=== PATIENT | female | born 1980 | race Two or more races ===

== ENCOUNTER 2022-06-20 15:29 | Emergency (ER) | payer OTHER ==
[2022-06-20 16:16] LABS: BILIRUBIN,URINE NEGATIVE (NEGATIVE); GLUCOSE, URINE (UA) NEGATIVE (NEGATIVE); KETONES,URINE (UA) NEGATIVE (NEGATIVE); LEUKOCYTE ESTERASE, URINE NEGATIVE (NEGATIVE); NITRITE,URINE NEGATIVE (NEGATIVE); OCCULT BLOOD,URINE SMALL (NEGATIVE); PROTEIN,URINE NEGATIVE (NEGATIVE); UROBILINOGEN,URINE 0.2 (NORMAL) E.U./dL (NORMAL)
[2022-06-20 16:18] LABS: CLARITY,URINE CLEAR (CLEAR); HCG UR QUAL NEGATIVE
[2022-06-20 16:25] LABS: BACTERIA,URINE Rare /HPF (None Seen); RBC,URINE 0-5 /HPF (0-5); SQUAMOUS EPITHELIAL CELL,UR RARE Squamous (<= Few); WBC,URINE 0-3 /HPF (0-5)
[2022-06-20 16:27] LABS: BASOPHILS # (AUTO) 0.1 10^3/uL (0.0-0.1); BASOPHILS % (AUTO) 1.4 %; EOSINOPHILS # (AUTO) 0.2 10^3/uL (0.0-0.7); EOSINOPHILS % (AUTO) 2.5 %; HCT - HEMATOCRIT 39.7 % (37.0-47.0); HGB - HEMOGLOBIN 12.2 g/dL (12.0-16.0); LYMPHOCYTES # (AUTO) 1.9 10^3/uL (1.5-3.5); LYMPHOCYTES % (AUTO) 29.5 %; MEAN CORPUSCULAR HEMOGLOBIN 26.8 pg (27.0-31.0); MEAN CORPUSCULAR HGB CONC 30.7 g/dL (32.0-36.0); MEAN CORPUSCULAR VOLUME 87.3 fL (81.0-99.0); MEAN PLATELET VOLUME 9.2 fL (7.9-10.8); MONOCYTES # (AUTO) 0.5 10^3/uL (0.0-1.0); MONOCYTES % (AUTO) 7.8 %; NEUTROPHILS # (AUTO) 3.8 10^3/uL (1.5-6.6); NEUTROPHILS % (AUTO) 58.6 %; PLT - PLATELET COUNT 402 10^3/uL (130-450); RED BLOOD COUNT 4.55 10^6/uL (4.20-5.40); RED CELL DISTRIBUTION WIDTH 15.7 % (12.0-15.0); WHITE BLOOD COUNT 6.5 x10^3/uL (4.8-10.8)
--- NOTE | 2022-06-20 16:38 | ED Physician Documentation ---
History of Present Illness - Stated complaint Stated Complaint: ABD PAIN GOING TO LT LEG - Chief complaint Chief Complaint: Abd Pain - Additonal information Additional information: 42-year-old female presents to the emergency department for evaluation of 4 days left lower quadrant abdominal pain with radiation down to the left thigh. No history of similar. She finds that the pain is constant but states worse when sitting. She took 3 Tylenol without relief of pain. She has had some nausea but no vomiting. No fevers. No urinary symptoms. No history of similar. Past surgical history significant for only. She is not anticoagulated Review of Systems Constitutional: reports: Reviewed and negative Cardiac: reports: Reviewed and negative Respiratory: reports: Reviewed and negative GI: reports: Abdominal Pain, Nausea. denies: Vomiting : reports: Reviewed and negative Skin: reports: Reviewed and negative PD PAST MEDICAL HISTORY - Allergies Allergies/Adverse Reactions: Allergies Allergy/AdvReac Type Severity Reaction Status Date / Time No Known Drug Allergies Allergy Verified 06/20/22 15:37 PD ED PE NORMAL - General General: Alert and oriented X 3, No acute distress - HEENT HEENT: PERRL - Neck Neck: Supple, no meningeal sign, No adenopathy - Cardiac Cardiac: RRR, No murmur - Respiratory Respiratory: No respiratory distress, Clear bilaterally - Abdomen Abdomen: Normal bowel sounds, Soft, Non tender (Scant left lower quadrant abdominal tenderness without guarding or rebound.) - Derm Derm: Warm and dry - Extremities Extremities: No deformity - Neuro Neuro: Alert and oriented X 3 Eye Opening: Spontaneous Motor: Obeys Commands Verbal: Oriented GCS Score: 15 Results - Vitals Vitals: Vital Signs - 24 hr 06/20/22 06/20/22 15:35 17:06 Temperature 36.6 C Heart Rate 84 88 Respiratory 16 16 Rate Blood Pressure 129/83 H 122/73 O2 Saturation 99 100 Oxygen O2 Source Room air - Labs Labs: Laboratory Tests 06/20/22 06/20/22 06/20/22 15:38 16:23 16:23 WBC 6.5 RBC 4.55 Hgb 12.2 Hct 39.7 MCV 87.3 MCH 26.8 L MCHC 30.7 L RDW 15.7 H Plt Count 402 MPV 9.2 Neut # (Auto) 3.8 Lymph # (Auto) 1.9 Holt # (Auto) 0.5 Eos # (Auto) 0.2 Baso # (Auto) 0.1 Absolute Nucleated RBC 0.00 Nucleated RBC % 0.0 Sodium 139 Potassium 3.5 Chloride 107 Carbon Dioxide 26 Anion Gap 6.0 BUN 14 Creatinine 0.6 Estimated GFR (MDRD) 110 Glucose 93 Calcium 9.0 Total Bilirubin 0.2 AST 16 ALT 12 Alkaline Phosphatase 56 Total Protein 8.0 Albumin 4.2 Globulin 3.8 Albumin/Globulin Ratio 1.1 Lipase 45 Urine Color YELLOW Urine Clarity CLEAR Urine pH 6.0 Ur Specific [place] 1.010 Urine Protein NEGATIVE Urine Glucose (UA) NEGATIVE Urine Ketones NEGATIVE Urine Occult Blood SMALL H Urine Nitrite NEGATIVE Urine Bilirubin NEGATIVE Urine Urobilinogen 0.2 (NORMAL) Ur Leukocyte Esterase NEGATIVE Urine RBC 0-5 Urine WBC 0-3 Ur Squamous Epith Cells RARE Squamous Urine Bacteria Rare Ur Microscopic Review INDICATED Urine Culture Comments NOT INDICATED Urine HCG, Qual NEGATIVE - Rads (name of study) Ct abd Relevant Findings:: Final report received (No acute abnormality in abdomen or pelvis. No CT findings to suggest acute diverticulitis. Fluid-filled small intestine demonstrates normal caliber. Findings are nonspecific and may be associated gastroenteritis. Moderate amount of stool in the rectum. Reproductive organs unremarkable) PD Medical Decision Making - ED course Complexity details: reviewed results, re-evaluated patient, d/w patient ED course: 42-year-old female presents emergency department for evaluation of 4 days left lower quadrant abdominal pain. Denies constipation or fevers. Finds it very uncomfortable especially when sitting. Most pertinent past surgical history is that for . Did obtain a CBC electrolytes and urinalysis. Per my interpretation no acute worrisome findings. A CT of the abdomen was obtained to rule out worrisome problem such as acute diverticulitis, appendicitis or ovarian pelvic disorders. The CT scan showed No acute abdominal process. She does have moderate stool in the lower colon and rectum. This finding was discussed with patient at the bedside. I am making the recommendation for her to use MiraLAX once twice a day until obstipation improved. We also discussed the usual emergent return precautions for worsening symptoms Departure - Departure Disposition: 01 Home, Self Care Clinical Impression: Left sided abdominal pain Constipation Qualifiers: Constipation type: other constipation type Qualified Code(s): K59.09 - Other constipation Instructions: ED Constipation Comments: You were seen today in the emergency department because for 4 days you have been having some left-sided abdominal pain worse when sitting. Here in the emergency department your labs were all essentially normal. We did do a CT scan to evaluate for possibility of diverticulitis or an atypical presentation for appendicitis. The CT scan does not show any worrisome findings including within your pelvic organs. However you do have a large amount of stool within your colon and rectum. This is likely the cause of your discomfort. I do recommend that you buy a bottle of MiraLAX at the pharmacy. Please take this once or twice a day until you have 4 or 5 loose watery bowel movements. I recommend that you increase your water intake each day as well as your fiber. Please discuss this ED visit with your primary care provider. Return to the ER for worsening symptoms, fevers, uncontrolled abdominal pain or vomiting
[2022-06-20] MEDS ORDERED: iohexoL-300 100 ML VIAL ONE (16:46)
[2022-06-20 16:56] LABS: ALBUMIN 4.2 g/dL (3.2-5.5); ALBUMIN/GLOBULIN RATIO 1.1 (1.0-2.2); BILIRUBIN,TOTAL 0.2 mg/dL (0.2-1.0); CREATININE 0.6 mg/dL (0.4-1.0); POTASSIUM 3.5 mmol/L (3.5-5.0)
[2022-06-20] MEDS ORDERED: iohexoL-300 100 ML VIAL IVP ONE (17:25)
[2022-06-20] MEDS ORDERED: KETOROLAC 30 MG/ML VIAL IVP STA (18:49)
--- NOTE | 2022-06-20 18:58 | CT Report ---
PROCEDURE: ABDOMEN/PELVIS W INDICATIONS: LLQ abd pain; ?stone, divertic, ovary CONTRAST: 100ml omni 300 TECHNIQUE: After the administration of IV contrast, 5 mm thick sections acquired from the diaphragms to the symp hysis. 5 mm thick coronal and sagittal reformats were acquired. For radiation dose reduction, the f ollowing was used: automated exposure control, adjustment of mA and/or kV according to patient size. COMPARISON: None. FINDINGS: Image quality: Excellent. Lung bases and heart: Unremarkable. Liver: Unremarkable. Gallbladder and biliary tree: No gallstones. No intrahepatic or intrahepatic biliary dilation. Spleen: Unremarkable. Pancreas: Unremarkable. Adrenals: Unremarkable. Kidneys and ureters: Unremarkable. Bowel and peritoneum: No bowel distension. No pathologic free fluid. Stomach is moderately distended with an air-fluid level. Fluid-filled small intestine disease noted, demonstrating normal caliber. Ap pendix is normal. A moderate amount stool in rectum. Lymph nodes: No central or retroperitoneal adenopathy. Vessels: Unremarkable. PELVIS Reproductive organs: Unremarkable. Bladder: Unremarkable. Lymph nodes: Unremarkable. Bones: No aggressive osseous abnormality. Other: None. IMPRESSION: 1. No acute abnormality in abdomen or pelvis. No CT findings to suggest acute diverticulitis. A cause for left lower quadrant pain is not definitively identified. 2. Fluid-filled small intestine demonstrates normal caliber. The findings nonspecific and may be asso ciated with gastroenteritis. 3. There is a moderate amount stool in rectum. 4. Normal appendix. Reviewed by: Bryan Del Angel MD on 06/20/2022 6:56 PM PDT Approved by: Bryan Del Angel MD on 06/20/2022 6:56 PM PDT Station ID: [id number]
[2022-06-20 19:37] VITALS: BP 114/77
== END 2022-06-20 19:36 | disposition home or self-care (01) ==
LOC: ED 15:29
DX: K59.00 Constipation, unspecified (principal)
CPT/HCPCS: 36415; 74177; 80053; 81001; 81025; 83690; 85025; 96374; 99283; 99284; Q9967; 81003; 87086